=== PATIENT | male | born 1950 | race Caucasian/White ===

== ENCOUNTER 2016-10-11 16:43 | Emergency (ER) | payer OTHER | END 2016-10-11 17:00 | disposition left against medical advice (07) | LOC: CED 16:43 | DX: S69.91XA Unspecified injury of right wrist, hand and finger(s), initial encounter (principal); Z53.8 Procedure and treatment not carried out for other reasons ==

== ENCOUNTER 2016-10-12 09:56 | Emergency (ER) | payer OTHER ==
--- NOTE | 2016-10-12 11:02 | EDPHY ---
H & P Stated Complaint: seen yesterday at [facility] for lac to right thumb, wants wound rechecked Time Seen by Provider: 10/12/16 10:54 HPI/ROS: CHIEF COMPLAINT: Wound recheck HISTORY OF PRESENT ILLNESS: Patient is a 66-year-old man who comes to the emergency department asking us to recheck his wound. He sliced the radial aspect yesterday on a mandolin. He was seen at [facility] and had his wound dressed with Surgicel and gauze. The bleeding did stop but today he is complaining about pain from the tight gauze. REVIEW OF SYSTEMS: Constitutional: denies: chills, fever, recent illness, recent injury EENTM: denies: blurred vision, double vision, nose congestion Respiratory: denies: cough, shortness of breath Cardiac: denies: chest pain, irregular heart rate, lightheadedness, palpitations Gastrointestinal/Abdominal: denies: abdominal pain, diarrhea, nausea, vomiting, blood streaked stools Genitourinary: denies: dysuria, frequency, hematuria, pain Musculoskeletal: denies: joint pain, muscle pain Skin: See HPI Neurological: denies: headache, numbness, paresthesia, tingling, dizziness, weakness Hematologic/Lymphatic: denies: blood clots, easy bleeding, easy bruising Immunologic/allergic: denies: HIV/AIDS, transplant EXAM: GENERAL: Well-appearing, well-nourished and in no acute distress. HEAD: Atraumatic, normocephalic. NECK: Normal range of motion, supple without lymphadenopathy or JVD. LUNGS: Breath sounds clear to auscultation bilaterally and equal. No wheezes rales or rhonchi. HEART: Regular rate and rhythm without murmurs, rubs or gallops. ABDOMEN: Soft, nontender, normoactive bowel sounds. No guarding, no rebound. No masses appreciated. EXTREMITIES: Normal range of motion, no pitting or edema. No clubbing or cyanosis. NEUROLOGICAL: Cranial nerves II through XII grossly intact. Normal speech, normal gait. 5/5 strength, normal movement in all extremities, normal sensation PSYCH: Normal mood, normal affect. SKIN: Left thumb bandaged. I did not remove Source: Patient Exam Limitations: No limitations - Personal History Current Tetanus Diphtheria and Acellular Pertussis (TDAP): Yes Tetanus Vaccine Date: 10/11/16 - Medical/Surgical History Hx Asthma: No Hx Chronic Respiratory Disease: No Hx Diabetes: No Hx Cardiac Disease: No Hx Renal Disease: No Hx Cirrhosis: No Hx Alcoholism: No Hx HIV/AIDS: No Hx Splenectomy or Spleen Trauma: No Other PMH: high cholesterol, htn - Social History Smoking Status: Never smoked Alcohol Use: Sober Drug Use: None Constitutional: Initial Vital Signs Temperature (C) 36.8 C 10/12/16 10:02 Heart Rate 58 L 10/12/16 10:02 Respiratory Rate 16 10/12/16 10:02 Blood Pressure 139/80 H 10/12/16 10:02 O2 Sat (%) 96 10/12/16 10:02 O2 Delivery Mode Room Air Allergies/Adverse Reactions: Penicillins Allergy (Unknown, Verified 07/10/09 11:57) Home Medications: Medication Instructions Recorded Levothyroxine 07/10/09 Lisinopril/Hctz 20/25Mg 07/10/09 Medical Decision Making ED Course/Re-evaluation: The patient's wound is bandaged and is not bleeding. His primary complaint seems to be that the bandage was too tight and painful. The portion that was wrapping around his hand was removed and he feels much better. We discussed options and agree not remove the bandage that is currently there for further will start bleeding again. I will give him sterile water to help with removal tomorrow. Will also place him to gauze for protection. Differential Diagnosis: Partial list of the Differential diagnosis considered include but were not limited to; laceration, abrasion, foreign body and although unlikely based on the history and physical exam, I also considered tendon injury, vascular injury , nail bed injury. I discussed these differential diagnoses and the plan with the patient as well as the usual and expected course. The patient understands that the diagnosis is provisional and that in medicine we are not always correct and that further workup is often warranted. Usual and customary warnings were given. All of the patient's questions were answered. The patient was instructed to return to the emergency department should the symptoms at all worsen or return, otherwise to followup with the physician as we discussed. Departure - Departure Disposition: Home, Routine, Self-Care Clinical Impression: Laceration, Laceration of thumb Condition: Fair Instructions: Laceration (ED) Referrals: Elisa Webb MD [Primary Care Provider] - As per Instructions
[2016-10-12 11:10] VITALS: BP 133/67; PULSE 82; RESP 18; TEMP 97.7; O2SAT 95
== END 2016-10-12 11:13 | disposition home or self-care (01) ==
DX: S61.019A Laceration without foreign body of unspecified thumb without damage to nail, initial encounter (principal); I10 Essential (primary) hypertension; X58.XXXA Exposure to other specified factors, initial encounter

== ENCOUNTER → 2018-02-15 | Outpatient (CLI) | payer OTHER | LOC: CIMAGING 14:40 | PROVIDERS: ATTEND Family Medicine | DX: K76.9 Liver disease, unspecified (principal) | CPT/HCPCS: 74160-PO; 82565-PO ==